=== PATIENT | male | born 1945 | race Caucasian/White ===

== ENCOUNTER 2016-12-05 10:50 | Emergency (ER) | payer OTHER ==
[~2016-12-05] VITALS: Ht 185.4 cm; Wt 101.4 kg
[~2016-12-05 10:50] MED LIST: AMLODIPINE BESYL5 MG; LIPITOR40 MG; LORAZEPAM0.5 MG
[2016-12-05 11:48] LABS: BASOPHIL COUNT 0.1 K/uL (0-0.1); EOSINOPHIL (%) 1.5 % (0-5); EOSINOPHIL COUNT 0.1 K/uL (0-0.3); HEMATOCRIT 30.3 % (38.0-50.0); IMMATURE GRANULOCYTE (%) 0.3 % (0.0-0.7); INSTRUMENT ABS NEUTROPHIL CT 7.3 K/uL; LYMPHOCYTE COUNT 0.6 K/uL (1.0-2.8); MCH 32.5 PG (29.0-34.0); MCHC 35.6 G/DL (30.0-36.0); MCV 91.3 FL (86-99); MEAN PLAT.VOLUME 9.1 uM^3 (9.0-12.4); MONOCYTE (%) 6.8 % (3-12); MONOCYTE COUNT 0.6 K/uL (0-0.8); NEUTROPHIL (%) 83.7 % (45-76); NEUTROPHIL COUNT 7.3 K/uL (1.8-6.4); PLATELET COUNT 252 K/uL (156-360); RBC DIS.WIDTH-CV 11.1 % (11.8-14.6); RBC DIS.WIDTH-SD 37.1 % (39-53); RED BLOOD COUNT 3.32 M/uL (4.00-5.50); WHITE BLOOD COUNT 8.7 K/uL (4.1-10.2)
[2016-12-05 11:53] LABS: PROTHROMBIN TIME 11.3 SEC (10.2-12.9)
[2016-12-05 11:59] LABS: CHLORIDE 95 mEq/L (99-109); POTASSIUM 3.6 mEq/L (3.7-5.4); SODIUM 128 mEq/L (136-147)
[2016-12-05 12:01] LABS: GLUCOSE 128 mg/dL (70-99)
[2016-12-05 12:02] LABS: ANION GAP 8 MEQ/L (2-14)
[2016-12-05 12:05] LABS: GFR ESTIMATE (CALCULATED) > 59 mL/min/
[2016-12-05 12:06] LABS: UREA NITROGEN (BUN) 14 mg/dL (9-23)
[2016-12-05 12:51] LABS: CHLORIDE 96 mEq/L (99-109); POTASSIUM 3.6 mEq/L (3.7-5.4); SODIUM 127 mEq/L (136-147)
[2016-12-05 12:52] LABS: GLUCOSE 110 mg/dL (70-99)
[2016-12-05 12:54] LABS: ANION GAP 7 MEQ/L (2-14)
[2016-12-05 12:56] LABS: GFR ESTIMATE (CALCULATED) > 59 mL/min/
[2016-12-05 12:57] LABS: UREA NITROGEN (BUN) 15 mg/dL (9-23)
[2016-12-05] MEDS ORDERED: AMOXICILLIN500 MG PO (13:13)
[2016-12-05 13:49] VITALS: BP 122/67
== END 2016-12-05 13:51 | disposition home or self-care (01) ==
LOC: EME 10:50
PROVIDERS: Emergency Medicine
PROC: 2Y41X5Z Packing of Nasal Region using Packing Material (ICD-10-PCS; principal; 2016-12-05)
DX: R04.0 Epistaxis (principal); J44.9 Chronic obstructive pulmonary disease, unspecified; E87.1 Hypo-osmolality and hyponatremia; E78.5 Hyperlipidemia, unspecified; I10 Essential (primary) hypertension; F17.200 Nicotine dependence, unspecified, uncomplicated
CPT/HCPCS: 80048; 80048 91; 85025; 85610; 94640; 99281; 99285; J7030